=== PATIENT | male | born 1985 | race Caucasian/White ===

== ENCOUNTER 2018-08-05 16:09 | Emergency (ER) | payer OTHER ==
--- NOTE | 2018-08-05 16:16 | PDOC ---
Rapid Medical Evaluation Time Seen by Provider: 08/05/18 16:12 Medical Evaluation: Allergies Allergy/AdvReac Type Severity Reaction Status Date / Time No Known Allergies Allergy Verified 10/30/17 12:59 I have performed a brief in-person evaluation of this patient. The patient presents with a chief complaint of: cough x 1 week. Posttussive chest discomfort. pt has asthma. ran out of his pump Pertinent physical exam findings: expiratory wheezing in b/l bases I have ordered the following: CXR, duoneb The patient will proceed to the ED for further evaluation. Discharge Disposition - Diagnosis Cough - Referrals - Patient Instructions - Post Discharge Activity
[2018-08-05 16:17] VITALS: BP 125/75; PULSE 111; TEMP 97.7; BMI 26.7
[2018-08-05] MEDS: ALBUTEROL SO4 2.5/IPRATROPIUM 0.5 INH SOL 3 ML VIAL.NEB. NEB SCH ×4 (16:20→17:21)
[2018-08-05] MEDS ORDERED: ALBUTEROL SO4 2.5/IPRATROPIUM 0.5 INH SOL 3 ML VIAL.NEB. NEB ONE ×2 (17:02→17:15)
[2018-08-05] MEDS ORDERED: predniSONE 20 MG TABLET (UD) PO ONE (17:15)
[2018-08-05] MEDS ORDERED: predniSONE 20 MG TABLET (UD) ONE (17:19)
--- NOTE | 2018-08-05 17:19 | PDOC ---
History of Present Illness - General Chief Complaint: Respiratory Stated Complaint: CHEST PAIN Time Seen by Provider: 08/05/18 16:12 History Source: Patient Exam Limitations: No Limitations - History of Present Illness Initial Comments: 08/05/18 17:14 32 yr male c/o cough for one month no fever , has pain to the chest with deep breath and coughing. Pt has nebulizer at home using without relief. Past History - Past Medical History Allergies/Adverse Reactions: Allergies Allergy/AdvReac Type Severity Reaction Status Date / Time No Known Allergies Allergy Verified 08/05/18 16:18 Home Medications: Ambulatory Orders Albuterol Sulfate Inhaler - [Ventolin HFA Inhaler -] 1 - 2 inh PO QID #1 inhaler 08/05/18 Azithromycin [Zithromax 250mg Tablets -] 250 mg PO UTDICT #6 tab 08/05/18 Prednisone [Deltasone] 40 mg PO DAILY #8 tablet 08/05/18 Asthma: Yes COPD: No Diabetes: Yes (pre) - Suicide/Smoking/Psychosocial Hx Smoking History: Current every day smoker Have you smoked in the past 12 months: Yes Number of Cigarettes Smoked Daily: 20 Information on smoking cessation initiated: No Hx Alcohol Use: Yes (SOCIALLY) Drug/Substance Use Hx: No *Physical Exam - Vital Signs Last Vital Signs Temp Pulse Resp BP Pulse Ox 97.7 F 111 H 16 125/75 97 08/05/18 16:12 08/05/18 16:12 08/05/18 16:12 08/05/18 16:12 08/05/18 16:12 - Physical Exam General Appearance: Yes: Nourished, Appropriately Dressed HEENT: positive: EOMI, HEATH Neck: positive: Supple Respiratory/Chest: positive: Rhonchi, Wheezing Cardiovascular: positive: Regular Rhythm, Regular Rate Gastrointestinal/Abdominal: positive: Normal Bowel Sounds, Soft Musculoskeletal: positive: Normal Inspection Extremity: positive: Normal Capillary Refill, Normal Inspection, Normal Range of Motion Integumentary: positive: Normal Color, Dry, Warm Neurologic: positive: Fully Oriented, Alert, Normal Mood/Affect, Normal Response , Motor Strength 5/5 Moderate Sedation - Procedure Monitoring Vital Signs: Procedure Monitoring Vital Signs Temperature 97.7 F 08/05/18 16:12 Pulse Rate 111 H 08/05/18 16:12 Respiratory Rate 16 08/05/18 16:12 Blood Pressure 125/75 12/14/18 16:12 O2 Sat by Pulse Oximetry (%) 97 08/05/18 16:12 ED Treatment Course - Medications Given in the ED: ED Medications Discontinued Medications Generic Name Dose Route Start Last Admin Trade Name Carmen PRN Reason Stop Dose Admin Albuterol/Ipratropium 1 amp 08/05/18 16:15 08/05/18 17:01 Duoneb - NEB 08/05/18 17:01 1 amp Q15M QUENTIN Administration Medical Decision Making - Medical Decision Making 08/05/18 17:20 cc: cough wheezing no fever one month not improving with OTC meds pt is a smoker 1ppd will give duonebs cxr *DC/Admit/Observation/Transfer Diagnosis at time of Disposition: Cough, Bronchitis - Discharge Dispostion Disposition: HOME Condition at time of disposition: Good - Prescriptions Prescriptions: Albuterol Sulfate Inhaler - [Ventolin HFA Inhaler -] 1 - 2 inh PO QID #1 inhaler Azithromycin [Zithromax 250mg Tablets -] 250 mg PO UTDICT #6 tab Prednisone [Deltasone] 40 mg PO DAILY #8 tablet - Referrals - Patient Instructions Printed Discharge Instructions: DI for Acute Bronchitis Additional Instructions: please drink 2 liters of water a day follow with your doctor in one week take the medication as directed Return to ER for any worsening symptoms - Post Discharge Activity Forms/Work/School Notes: Back to Work
== END 2018-08-05 17:54 | disposition home or self-care (01) ==
LOC: JER 16:09 → JERFT 16:09
DX: J40 Bronchitis, not specified as acute or chronic (principal); R05 Cough; F17.210 Nicotine dependence, cigarettes, uncomplicated; R73.03 Prediabetes
CPT/HCPCS: 71046-TC-FY; 99281-25

== ENCOUNTER 2021-12-14 16:51 | Emergency (ER) | payer OTHER ==
[2021-12-14 16:56] VITALS: BP 136/79; PULSE 99; TEMP 98.1; BMI 30.1
[2021-12-14] MEDS ORDERED: SODIUM CHLORIDE 0.9% 500 ML INFUS.BAG IV ONE (17:41)
[2021-12-14] MEDS ORDERED: FAMOTIDINE 20 MG/50 ML IVPB 20 MG/50 ML MG IVPB ONE (17:41)
[2021-12-14] MEDS ORDERED: MAG HYDROX/AL HYDROX/SIMETH 30 ML UNIT-DOSE CUP PO ONE (17:41)
[2021-12-14] MEDS ORDERED: MAG HYDROX/AL HYDROX/SIMETH 30 ML UNIT-DOSE CUP ONE (18:00)
[2021-12-14] MEDS ORDERED: FAMOTIDINE 10 MG/ML VIAL IVPB ONE (18:01)
[2021-12-14 18:02] LABS: PH,URINE 5.5 (5.0-8.0); URINE APPEARANCE CLEAR; URINE BILIRUBIN NEGATIVE (NEGATIVE); URINE COLOR YELLOW; URINE GLUCOSE (UA) NEGATIVE (NEGATIVE); URINE KETONE NEGATIVE (NEGATIVE); URINE LEUK ESTERASE NEGATIVE (NEGATIVE); URINE NITRITE NEGATIVE (NEGATIVE); URINE PROTEIN NEGATIVE (NEGATIVE); URINE UROBILINOGEN 0.2 mg/dL (0.2-1.0)
[2021-12-14 18:04] LABS: BASO % 0.7 % (0-2.0); EOS % 0.6 % (0-4.5); HEMATOCRIT 45.2 % (35.4-49); HEMOGLOBIN 15.4 GM/dL (11.7-16.9); LYMPH % 22.7 % (8-40); MCH 27.6 pg (25.7-33.7); MEAN CELL VOLUME 81.2 fl (80-96); MEAN PLT VOLUME 6.6 fl (7.5-11.1); MONO % 9.6 % (3.8-10.2); NEUT % 66.4 % (42.8-82.8); PLATELET COUNT 372 10^3/uL (134-434); RBC 5.57 M/mm3 (4.00-5.60); RDW 14.3 % (11.9-15.9); WHITE BLOOD COUNT 11.8 K/mm3 (4.0-10.0)
[2021-12-14 18:32] LABS: ALBUMIN 4.2 g/dl (3.4-5.0); BLOOD UREA NITROGEN 11.4 mg/dL (7-18); CALCIUM 9.9 mg/dL (8.5-10.1)
[2021-12-14 18:35] LABS: CREATININE 0.9 mg/dL (0.55-1.3)
[2021-12-14 18:37] LABS: BILIRUBIN,TOTAL 0.3 mg/dL (0.2-1)
== END 2021-12-14 21:06 | disposition home or self-care (01) ==
LOC: JER 16:51
PROC: 3E033GC Introduction of Other Therapeutic Substance into Peripheral Vein, Percutaneous Approach (ICD-10-PCS; principal; 2021-12-14)
DX: R10.13 Epigastric pain (principal)
CPT/HCPCS: 36415; 71046-TC-FY; 76705-TC; 80053; 81003; 83690; 84484; 85025; 87086; 93005; 93010; 99285-25

== ENCOUNTER 2024-07-11 01:03 | Emergency (ER) | payer OTHER ==
[2024-07-11 01:13] VITALS: BP 160/81; PULSE 86; RESP 20; TEMP 97.9; BMI 33.9
[2024-07-11] MEDS ORDERED: ACETAMINOPHEN INJECTION 100 ML ONE (02:22)
[2024-07-11] MEDS ORDERED: MAG HYDROX/AL HYDROX/SIMETH 30 ML UNIT-DOSE CUP ONE (02:22)
[2024-07-11] MEDS ORDERED: KETOROLAC TROMETHAMINE 30 MG/1 ML VIAL ONE (02:22)
[2024-07-11] MEDS ORDERED: ONDANSETRON 4 MG/2 ML VIAL ONE (02:23)
[2024-07-11] MEDS ORDERED: FAMOTIDINE 20 MG TABLET ONE (02:23)
[2024-07-11] MEDS: ACETAMINOPHEN 1000 MG/100 ML BAG IVPB ONE (02:37)
[2024-07-11] MEDS: KETOROLAC TROMETHAMINE 30 MG/1 ML VIAL IVPUSH ONE (02:37)
[2024-07-11] MEDS: MAG HYDROX/AL HYDROX/SIMETH 30 ML UNIT-DOSE CUP PO ONE (02:37)
[2024-07-11] MEDS: ONDANSETRON 4 MG/2 ML VIAL IVPB ONE (02:37)
[2024-07-11] MEDS: FAMOTIDINE 10 MG TABLET PO ONE (02:37)
[2024-07-11] MEDS ORDERED: morphine SULFATE 4 MG/ML VIAL ONE (02:43)
[2024-07-11 02:48] LABS: BASO % 0.5 % (0-2.0); EOS % 0.3 % (0-4.5); HEMATOCRIT 39.7 % (35.4-49); HEMOGLOBIN 13.3 GM/dL (11.7-16.9); LYMPH % 21.4 % (8-40); MCH 27.8 pg (25.7-33.7); MCHC 33.6 g/dl (32.0-35.9); MEAN CELL VOLUME 82.8 fl (80-96); MEAN PLT VOLUME 6.8 fl (7.5-11.1); MONO % 8.4 % (3.8-10.2); NEUT % 69.4 % (42.8-82.8); PLATELET COUNT 320 10^3/uL (134-434); RBC 4.79 M/mm3 (4.00-5.60); RDW 14.6 % (11.9-15.9); WHITE BLOOD COUNT 11.3 K/mm3 (4.0-10.0)
[2024-07-11] MEDS: morphine SULFATE 4 MG/ML VIAL IVPUSH ONE (03:02)
[2024-07-11 03:14] LABS: POTASSIUM 4.2 mmol/L (3.5-5.1)
[2024-07-11 03:16] LABS: CALCIUM 9.5 mg/dL (8.5-10.1)
[2024-07-11 03:17] LABS: ALBUMIN 3.6 g/dl (3.4-5.0); BLOOD UREA NITROGEN 18.2 mg/dL (7-18); MAGNESIUM 1.9 mg/dL (1.8-2.4)
[2024-07-11 03:20] LABS: CREATININE 1.1 mg/dL (0.55-1.3)
[2024-07-11 03:21] LABS: BILIRUBIN,TOTAL 0.4 mg/dL (0.2-1); TOT PROT 6.8 g/dl (6.4-8.2)
[2024-07-11 09:37] LABS: EPI CELLS 19 /uL (0-25.1); HYALINE CASTS 2 /uL (0-3.1); PH,URINE 5.5 (5.0-8.0); URINE APPEARANCE Clear; URINE BACTERIA 48 /uL (0-1359); URINE BILIRUBIN Negative (NEGATIVE); URINE COLOR Yellow; URINE GLUCOSE (UA) Negative (NEGATIVE); URINE KETONE Negative (NEGATIVE); URINE LEUK ESTERASE Negative (NEGATIVE); URINE NITRITE Negative (NEGATIVE); URINE PROTEIN Negative (NEGATIVE); URINE RBC 80 /uL (0-23.9); URINE UROBILINOGEN 0.2 mg/dL (0.2-1.0); URINE WBC 14 /uL (0-25.8)
== END 2024-07-11 07:57 | disposition home or self-care (01) ==
LOC: JER 01:03
PROC: 3E033NZ Introduction of Analgesics, Hypnotics, Sedatives into Peripheral Vein, Percutaneous Approach (ICD-10-PCS; principal; 2024-07-11)
PROC: 3E0333Z Introduction of Anti-inflammatory into Peripheral Vein, Percutaneous Approach (ICD-10-PCS; 2024-07-11)
PROC: 3E033NZ Introduction of Analgesics, Hypnotics, Sedatives into Peripheral Vein, Percutaneous Approach (ICD-10-PCS; 2024-07-11)
PROC: 3E033GC Introduction of Other Therapeutic Substance into Peripheral Vein, Percutaneous Approach (ICD-10-PCS; 2024-07-11)
DX: R10.31 Right lower quadrant pain (principal); R11.10 Vomiting, unspecified
CPT/HCPCS: 36415; 74178-TC; 80053; 81003; 83605; 83690; 83735; 85025; 87086; 96374; 96375; 99284-25; J0131